=== PATIENT | male | born 1965 | race African-American/Black ===

== ENCOUNTER 2017-07-27 10:12 | Inpatient (IN) | payer BC ==
[~2017-07-27] VITALS: Ht 180.3 cm; Wt 74.5 kg
[~2017-07-27 10:12] MED LIST: NAPROSYN500 MG PO; PRILOSEC OTC20 MG PO; ULTRAM50 MG PO
[2017-07-27 10:59] LABS: EOSINOPHIL (%) 0.1 % (0-5); HEMATOCRIT 42.4 % (38.0-50.0); IMMATURE GRANULOCYTE (%) 0.1 % (0.0-0.7); INSTRUMENT ABS NEUTROPHIL CT 4.9 K/uL; LYMPHOCYTE COUNT 1.4 K/uL (1.0-2.8); MCHC 34.4 G/DL (30.0-36.0); MCV 95.9 FL (86-99); MEAN PLAT.VOLUME 9.5 uM^3 (9.0-12.4); MONOCYTE (%) 9.4 % (3-12); MONOCYTE COUNT 0.7 K/uL (0-0.8); NEUTROPHIL (%) 70.3 % (45-76); NEUTROPHIL COUNT 4.9 K/uL (1.8-6.4); PLATELET COUNT 241 K/uL (156-360); RBC DIS.WIDTH-CV 11.7 % (11.8-14.6); RBC DIS.WIDTH-SD 41.2 % (39-53); RED BLOOD COUNT 4.42 M/uL (4.00-5.50)
[2017-07-27] MEDS ORDERED: ANXIETY (11:03)
[2017-07-27 11:07] LABS: INTER. NORMALIZED RATIO 1.1; PROTHROMBIN TIME 12.2 SEC (10.2-12.9)
[2017-07-27 11:09] LABS: PTT 28.7 SEC (25-37)
[2017-07-27 11:10] LABS: CHLORIDE 106 mEq/L (99-109); POTASSIUM 3.9 mEq/L (3.7-5.4); SODIUM 137 mEq/L (136-147)
[2017-07-27 11:11] LABS: GLUCOSE 96 mg/dL (70-99)
[2017-07-27 11:13] LABS: ANION GAP 8 MEQ/L (2-14)
[2017-07-27 11:15] LABS: GFR ESTIMATE (CALCULATED) > 59 mL/min/
[2017-07-27 11:16] LABS: UREA NITROGEN (BUN) 16 mg/dL (9-23)
[2017-07-27 11:19] LABS: TROP-I INTERPRETATION NEGATIVE; TROPONIN-I < 0.01 ng/mL (0.0-0.30)
[2017-07-27] MEDS ORDERED: PANTOPRAZOLE SO40 MG PO (13:22)
[2017-07-27] MEDS ORDERED: CITALOPRAM HBR20 MG PO (13:24)
[2017-07-27 17:26] VITALS: BP 133/82
[2017-07-27 17:31] LABS: TROP-I INTERPRETATION NEGATIVE; TROPONIN-I < 0.01 ng/mL (0.0-0.30)
[2017-07-27 19:29] VITALS: BP 128/83
[2017-07-28] VITALS (7 sets, daily range): BP systolic 112–153; BP diastolic 69–91
[2017-07-28 00:12] LABS: TROP-I INTERPRETATION NEGATIVE; TROPONIN-I < 0.01 ng/mL (0.0-0.30)
[2017-07-28 08:51] LABS: MCH 32.8 PG (29.0-34.0); MCHC 33.7 G/DL (30.0-36.0); MCV 97.3 FL (86-99); MEAN PLAT.VOLUME 9.5 uM^3 (9.0-12.4); PLATELET COUNT 228 K/uL (156-360); RBC DIS.WIDTH-CV 11.7 % (11.8-14.6); RBC DIS.WIDTH-SD 41.5 % (39-53); RED BLOOD COUNT 4.42 M/uL (4.00-5.50)
[2017-07-28 09:17] LABS: ALKALINE PHOSPHATASE 63 IU/L (3-129); ANION GAP 9 MEQ/L (2-14); CHLORIDE 104 MEQ/L (99-109); GFR ESTIMATE (CALCULATED) > 59 mL/min/; GLUCOSE 87 mg/dL (70-99); POTASSIUM 4.5 MEQ/L (3.7-5.4); SAMPLE HEMOLYSIS CHECK 0; SAMPLE ICTERIC CHECK 0; SAMPLE LIPEMIA CHECK 0; SODIUM 138 MEQ/L (136-147); TOTAL BILIRUBIN 0.9 MG/DL (0.0-1.0); UREA NITROGEN (BUN) 14 mg/dL (9-23)
[2017-07-28 09:18] LABS: PTT 38.7 SEC (25-37)
[2017-07-28 10:57] LABS: INTER. NORMALIZED RATIO 1.1; PROTHROMBIN TIME 12.8 SEC (10.2-12.9)
[2017-07-29 07:40] VITALS: BP 130/86
[2017-07-29] MEDS ORDERED: XARELTO1 EACH PO (09:05)
[2017-07-29 09:11] LABS: INTER. NORMALIZED RATIO 1.2; PROTHROMBIN TIME 13.2 SEC (10.2-12.9)
[2017-07-29] MEDS ORDERED: NICOTINE PATCH1 EAC2 TD (11:47)
== END 2017-07-29 12:52 | disposition home or self-care (01) | DRG 176 ==
LOC: EME 10:12 → 5SOUTH 13:01 → EDOF 13:01 → ENRESERV 13:02 → 5SOUTH 16:00 → ENPENDDIS 07-29 → 5SOUTH 07-29 12:52
PROVIDERS: Emergency Medicine; Hospitalist; Internal Medicine; Internal Medicine Pulmonary Disease
DX: I26.99 Other pulmonary embolism without acute cor pulmonale (principal); R04.2 Hemoptysis; I10 Essential (primary) hypertension; F41.9 Anxiety disorder, unspecified; F17.210 Nicotine dependence, cigarettes, uncomplicated; F12.90 Cannabis use, unspecified, uncomplicated; Z72.89 Other problems related to lifestyle
CPT/HCPCS: 71010; 71275; 74177; 80048; 80053; 81240 90; 82150 91; 82272; 83090 90; 84484; 85025; 85027; 85240 90; 85300 90; 85303 90; 85305 90; 85306 90; 85379; 85610; 85613 90; 85730; 85730 90; 86146 90; 86147 90; 87070; 87205; 89051; 93005; 93306; 93970; 94799; 99202; 99281; 99285; G0103; J1885; J2270; J7030